=== PATIENT | male | born 2000 | race Two or more races ===

== ENCOUNTER 2024-12-15 20:55 | Emergency (ER) | payer OTHER ==
[~2024-12-15] VITALS: Ht 167.6 cm; Wt 65.8 kg
[2024-12-15] MEDS ORDERED: KETOROLAC TROMETHAMINE 30 MG VIAL IV STA (21:29)
[2024-12-15] MEDS ORDERED: KETOROLAC TROMETHAMINE 30 MG VIAL ONE (21:31)
[2024-12-15 21:50] LABS: BASO % 0.7 % (0.1-1.2); EOS % 4.3 % (0.7-7.0); HEMATOCRIT 40.9 % (40.1-51.0); HEMOGLOBIN 14.1 g/dL (13.7-17.5); LYMPH # 2.74 (1.18-3.74); MEAN CORPUSCULAR HEMOGLOBIN 29.1 pg (25.6-32.2); MONO # 0.64 (0.24-0.82); MONO % 9.1 % (4.7-12.5); NEUT % 46.9 % (34.0-71.1); PLATELET COUNT 230 K/uL (163-369); RED BLOOD COUNT 4.85 M/uL (4.63-6.08); RED CELL DISTRIBUTION WIDTH 12.5 % (11.6-14.4)
[2024-12-15 22:16] LABS: CALCIUM 8.7 mg/dL (8.5-10.1); CREATININE SERUM 1.02 mg/dL (0.70-1.30); GFR 88.99; POTASSIUM 3.66 mEq/L (3.5-5.1)
[2024-12-15 22:31] LABS: URINE APPEARANCE Clear; URINE BILIRRUBIN Negative (NEGATIVE); URINE BLOOD Negative; URINE COLOR Yellow; URINE GLUCOSE Negative (NEGATIVE); URINE KETONE Negative (NEGATIVE); URINE LEUKOCYTE Negative; URINE NITRATE Negative; URINE PROTEIN Negative (NEGATIVE)
[2024-12-15 22:40] LABS: URINE BACTERIA 1.2 uL (0.0-1933); URINE RBC 1.7 uL (0.0-20.8); URINE WBC 0.6 uL (0.0-23.2)
== END 2024-12-15 23:04 | disposition home or self-care (01) ==
LOC: ER 22:53
DX: R10.9 Unspecified abdominal pain (principal); Z91.013 Allergy to seafood